=== PATIENT | male | born 1985 | race Caucasian/White ===

== ENCOUNTER 2019-08-19 23:59 | Emergency (ER) | payer SELFPAY ==
[~2019-08-19 23:59] MED LIST: PENICILLIN-VK500 M1 PO
[2019-08-20] MEDS ORDERED: FLONASE ALLERG9.9 ML NS (00:47)
[2019-08-20 00:55] VITALS: BP 113/82
== END 2019-08-20 00:55 | disposition home or self-care (01) ==
LOC: ED 23:59
DX: H69.92 Unspecified Eustachian tube disorder, left ear (principal); F17.210 Nicotine dependence, cigarettes, uncomplicated

== ENCOUNTER 2020-02-26 20:36 | Emergency (ER) | payer SELFPAY ==
[~2020-02-26] VITALS: Ht 170.2 cm; Wt 99.8 kg
[~2020-02-26 20:36] MED LIST changes: +FLONASE ALLERG9.9 ML NS
[2020-02-26 21:41] VITALS: BP 138/82
== END 2020-02-26 21:38 | disposition short-term general hospital (02) ==
LOC: ED 20:36
DX: N50.811 Right testicular pain (principal); F17.210 Nicotine dependence, cigarettes, uncomplicated
CPT/HCPCS: J2270; J2405

== ENCOUNTER 2020-09-02 20:42 | Emergency (ER) | payer SELFPAY ==
[2020-09-02 22:44] VITALS: BP 132/94
== END 2020-09-02 22:44 | disposition home or self-care (01) ==
LOC: ED 20:42
DX: S39.011A Strain of muscle, fascia and tendon of abdomen, initial encounter (principal); F17.200 Nicotine dependence, unspecified, uncomplicated

== ENCOUNTER 2020-10-19 18:27 | Emergency (ER) | payer SELFPAY ==
[2020-10-19 20:23] VITALS: BP 148/103
== END 2020-10-19 20:23 | disposition home or self-care (01) ==
LOC: ED 18:27
DX: T15.91XA Foreign body on external eye, part unspecified, right eye, initial encounter (principal); W45.8XXA Other foreign body or object entering through skin, initial encounter; Y99.0 Civilian activity done for income or pay